=== PATIENT | male | born 1960 | race Two or more races ===

== ENCOUNTER → 2016-09-16 05:40 | Day surgery (SDC) | payer BC ==
--- NOTE | 2016-08-25 08:49 | HP ---
HISTORY AND PHYSICAL: DATE OF ADMISSION/SURGERY: 09/16/16 DATE OF OFFICE VISIT: 08/22/16 SURGEON: Rafia Castillo MD PROCEDURE: Right knee arthroscopy with partial medial meniscectomy and lateral cyst excision. CHIEF COMPLAINT: Right knee pain. HISTORY OF PRESENT ILLNESS: Mr. Easton is a 56-year-old gentleman with continued complaints of right knee pain. He has failed conservative management and has elected to proceed with surgery which is scheduled for 09/16/[address] Castillo. PAST MEDICAL HISTORY: High cholesterol. PAST SURGICAL HISTORY: Left knee arthroscopy, and right carpal tunnel release. CURRENT MEDICATIONS: Naproxen. ALLERGIES: To DEMEROL. FAMILY HISTORY: Prostate cancer and heart disease. SOCIAL HISTORY: This is a 56-year-old gentleman, lives with his . He works as a deputy chief of the police department. He does not smoke or use drugs. Occasional alcohol. REVIEW OF SYSTEMS: A complete 14-point review of systems was reviewed with the patient. All was negative or noncontributory. PHYSICAL EXAMINATION VITAL SIGNS: He stands 5 feet and 7 inches tall, weighs 225 pounds. His blood pressure 128/72, his heart rate 77. HEENT: Normocephalic, atraumatic. NECK: Supple. No palpable lymph nodes. Trachea is midline. PULMONARY: The lungs are clear to auscultation bilaterally. No wheezes, rhonchi, or rales. CARDIO: Regular rate and rhythm. Strong S1, S2. No murmurs, gallops, or rubs. No peripheral edema. ABDOMEN: Soft, nontender, nondistended. NEUROLOGICAL: He is alert and oriented x3. Cranial nerves II through XII are intact. MUSCULOSKELETAL: Right lower extremity: The skin is intact. He has some tenderness over the medial joint line with mild effusion. Full range of motion. Negative Bobbi's. Negative posterior drawer. He is neurovascularly intact distally with intact sensation. ASSESSMENT AND PLAN: Mr. Easton is a 56-year-old gentleman with complaints of right knee pain. He has failed conservative management and he has elected to proceed with right knee arthroscopy with partial medial meniscectomy and lateral cyst excision and surgery was scheduled for 09/16/[address] Castillo. Percocet as well as ibuprofen were sent to his pharmacy for postoperative pain control. He will follow with Dr. Castillo in 10 to 14 days after the surgery. RIDDHI BARTLETT [id number]/[facility] #: [id number] MTDD
[~2016-09-16 05:40] MED LIST: Buffered Lidocaine 1% SYR 3ML* 3 ML/SYR SYRINGE INTRADERM ONE; Bupivacaine 0.5% SDV PF* 30 ML VIAL ONE; Chloroprocaine 2%* 20 ML VIAL ONE; DiMENhydriNATE IV* 50 MG/ML VIAL IV PUSH PRN; EPINEPHrine AMP 1 MG/ML ONE; Ibuprofen TAB* 400 MG ONE; Ibuprofen TAB* 800 MG PO ONE; Midazolam* 1 MG/ML 2 ML VIAL (2 MG) ONE; Midazolam* 1 MG/ML 5 ML VIAL (5 MG) ONE; Ondansetron INJ* 2 MG/ML VIAL IV PRN; Sodium Citrate/Citric Acid* 15 ML UDC ONE; Sodium Citrate/Citric Acid* 15 ML UDC PO ONE; ceFAZolin 2 GM PREMIX (*) 2 GM/50 ML BAG IVPB ONE; fentaNYL* 50 MCG/ML 2 ML VIAL (100 MCG VIAL) IV PRN; fentaNYL* 50 MCG/ML 2 ML VIAL (100 MCG VIAL) ONE; methylPREDNISolone ACETATE 80* 80 MG/ML 1 ML VIAL ONE; oxyCODONE/Acetamin 5/325 MG* TAB ONE
[2016-09-16] MEDS: oxyCODONE/Acetamin 5/325 MG* TAB PO PRN ×2 (09:04→09:25)
[2016-09-16 10:02] VITALS: BP 152/68
--- NOTE | 2016-09-17 15:00 | OP ---
DATE OF OPERATION: 09/16/16 [facility] DATE OF : 60 ATTENDING SURGEON: Rafia Castillo MD HOME IMPROVEMENT ADVISOR: RIDDHI Hill ANESTHESIOLOGIST: Dr. Connelly. ANESTHESIA: Spinal. PRE-OP DIAGNOSES: Right knee medial meniscal tear, lateral knee cyst. POST-OP DIAGNOSES: Right knee medial meniscal tear, lateral cyst, anterior synovitis. OPERATIVE PROCEDURE: Right knee arthroscopy with partial medial meniscectomy, anterior synovectomy, and lateral cyst excision. COMPLICATIONS: None. TOURNIQUET TIME: 8 minutes. SPECIMEN: Small 1-cm diameter soft tissue cystic-like structure sent to pathology. EBL: Less than 25 cc. BRIEF HISTORY/INDICATION: Mr. Easton is a 56-year-old gentleman with several months of increasingly severe right knee pain. An MRI confirmed a re- tear of his medial meniscus. He also developed a small cyst around the prior lateral portal incision. He wished to have both of these excised due to continued pain. Conservative treatment with rest, physical therapy, antiinflammatories, and intra-articular steroid injections failed to control his pain. Informed consent was obtained from the patient. He understood the risks of the procedure included but were not limited to bleeding, infection, damage to nearby structures, continued pain, need for further surgery, recurrence of the cyst, stroke, heart attack, blood clot, and . He wishes to proceed. INTRAOPERATIVE FINDINGS: Intraoperatively, the patient was known to have a parrot- beak-type tear of the body of the medial meniscus, which was displaced into the joint. Grade 3 and 4 Outerbridge cartilage changes of the medial femoral condyle, grade 2 and 3 Outerbridge cartilage changes of the patellar cartilage. Large amount anterior and anteromedial synovitis. Also, a 1-cm diameter cystic-like soft tissue structure just superior to the prior lateral portal. DESCRIPTION OF PROCEDURE: Mr. Easton was identified in the preanesthesia unit. His right lower extremity was marked as the correct operative side. Informed consent was signed and placed in the chart. The patient was taken to the operating room and placed under spinal anesthesia. A tourniquet was placed on the right thigh. The right lower extremity was prepped and draped in the usual sterile fashion. Preop time-out was made to correctly identify the patient's side and site. Appropriate perioperative antibiotics were given within 1 hour of incision. A 0.5 cm anterolateral portal incision was made using the prior lateral portal incision site. A 15 blade was carried down through the capsule. Trocar was introduced. As soon as the light and water sources were turned on, there was immediate visualization of the suprapatellar pouch. A tour of the knee joint was performed. Suprapatellar pouch had no obvious abnormalities. Patellofemoral compartment had a large amount of the anteromedial synovitis and the patella had some cartilage fissures with grade 2 and 3 Outerbridge cartilage changes. No large areas of exposed subchondral bone. Medial gutter had a large amount of synovitis. Anterior joint had significant synovitis as well. The medial compartment showed a medial meniscal body tear. ACL appeared to be intact. Medial femoral condyle had exposed subchondral bone with grade 3 and 4 Outerbridge cartilage changes. The leg was placed in a [id number] position. Lateral compartment had no significant cartilage degeneration or obvious meniscal tear. Under direct visualization, a medial portal incision was made with a 15 blade. A probe was introduced and a second tour of the knee joint was performed. There were large amounts of small cartilage fragments in the joint fluid. These were suctioned out of the joint and irrigated with the shaver. Next, the probe showed displaceable [id number]-[id number] tear of the medial meniscal body in the white-red zone, this was removed using a straight biter and shaver. Radiofrequency ablation wand was used to smooth the edge of the meniscus. A probe showed no additional tearing or displaceable meniscal fragments. Next, the shaver and radiofrequency ablation wand were used to remove some anterior synovitis and anteromedial synovitis. The knee was copiously irrigated with sterile saline. All instruments were carefully removed. Tourniquet was turned up at this point for 8 minutes. The lateral portal incision was enlarged to approximately 3 cm. A small amount of soft tissue, which was palpable and seemed to be a cyst-like structure was carefully removed with tenotomies and sent to pathology. Interrupted 2-0 Vicryl was used to close this capsular region and the portal incision. 3-0 nylon was used to close the medial portal and the lateral incision. Intra- articular injection of 80 mg of Depo-Medrol and 6 cc of 0.25% Marcaine was placed in the knee joint. Sterile Xeroform, 4 x 4's, and Webril were used to cover the incisions. Casey wrap and cold pack were placed over this. The patient's anesthesia was reversed without difficulty. He was taken to the PACU in stable condition. Intended weightbearing will be weightbearing as tolerated. Intended DVT prophylaxis will be aspirin twice daily. [id number]/[facility] #: [id number] MTDD
== END | disposition home or self-care (01) ==
LOC: OR 05:40
PROVIDERS: ATTEND Orthopaedic Surgery Adult Reconstructive Orthopaedic Surgery
DX: M23.203 Derangement of unspecified medial meniscus due to old tear or injury, right knee (principal); M65.861 Other synovitis and tenosynovitis, right lower leg; E66.9 Obesity, unspecified
CPT/HCPCS: 88304; A9270-GY; J0171; J0690; J1040; J2250; J2400; J3010

== ENCOUNTER 2017-05-28 07:40 | Emergency (ER) | payer BC ==
[2017-05-28 07:58] VITALS: BP 137/74
--- NOTE | 2017-05-28 08:18 | UC ---
Back Pain HPI - HPI Summary HPI Summary: 56 yo male with right CVA pain with some radiation to right flank x 2-3 days constant currently 01/10 no UTI symptoms no f/c no n/v - History of Current Complaint Chief Complaint: UCGeneralIllness Stated Complaint: LOWER BACK PAIN Time Seen by Provider: 05/28/17 08:01 Hx Obtained From: Patient Onset/Duration: Sudden Onset - fairly acute onset Timing: Constant Severity Initially: Moderate Severity Currently: Moderate Pain Intensity: 6 Pain Scale Used: 0-10 Numeric Back Pain: Is Discrete @ - right CVA, Radiates To - right flank Character: Aching Aggravating Factor(s): Movement Alleviating Factor(s): OTC Meds Associated Signs And Symptoms: Positive: Negative, Flank Pain - Allergies/Home Medications Allergies/Adverse Reactions: Allergies Allergy/AdvReac Type Severity Reaction Status Date / Time Meperidine [From Demerol HCl] AdvReac Intermediate Dizziness Verified 05/28/17 07:46 PMH/Surg Hx/FS Hx/Imm Hx Previously Healthy: Yes - Surgical History Surgical History: Yes Surgery Procedure, Year, and Place: 2013 LEFT INGUINAL HERNIA REPAIR. 2014 LEFT KNEE ARTHROSCOPIC SURGERY FOR MENISCAL TEAR, [facility] [place]. 2015 RIGHT CARPAL TUNNEL RELEASE, [facility] [place]. 2016 RIGHT KNEE ARTHROSCOPIC SURGERY, PARTIAL MENISCECTOMY & MEDIAL CHONDROPLASTY, [facility] [place] - Family History Known Family History: Positive: Hypertension - Social History Alcohol Use: Rare Alcohol Amount: 1 BEER PER WEEK Substance Use Type: None Smoking Status (MU): Never Smoked Tobacco Have You Smoked in the Last Year: No Review of Systems Constitutional: Negative Skin: Negative Eyes: Negative ENT: Negative Respiratory: Negative Cardiovascular: Negative Gastrointestinal: Negative Genitourinary: Negative Motor: Negative Neurovascular: Negative Musculoskeletal: Myalgia Neurological: Negative Psychological: Negative Is Patient Immunocompromised?: No All Other Systems Reviewed And Are Negative: Yes Physical Exam Triage Information Reviewed: Yes Appearance: Well-Appearing, No Pain Distress, Well-Nourished Vital Signs: Initial Vital Signs Temp 97.7 F 05/28/17 07:47 Pulse 65 05/28/17 07:47 Resp 20 05/28/17 07:47 BP 137/74 05/28/17 07:47 Pulse Ox 97 05/28/17 07:47 Vital Signs Reviewed: Yes Eyes: Positive: Conjunctiva Clear ENT: Positive: Hearing grossly normal. Negative: Nasal congestion, Nasal drainage, Tonsillar exudate, Trismus, Muffled/hoarse voice Neck: Positive: Supple, Nontender, No Lymphadenopathy Respiratory: Positive: Lungs clear, Normal breath sounds, No respiratory distress Cardiovascular: Positive: RRR, No Murmur Abdomen Description: Positive: Nontender, No Organomegaly, CVA Tenderness (R) - mild Bowel Sounds: Positive: Present Musculoskeletal: Positive: ROM Intact, No Edema Neurological: Positive: Alert Psychological Exam: Normal Skin Exam: Normal Diagnostics - Laboratory Diagnostic Studies Completed/Ordered: Udip - negative - Radiology No standard instances Xray Interpretation: No Acute Changes - NO RIGHT HYDRONEPHROSIS OR NEPHROLITHIASIS Radiology Interpretation Completed By: Radiologist Back Pain Course/Dx - Differential Dx/Diagnosis Provider Diagnoses: back pain/suspect strain Discharge - Discharge Plan Condition: Stable Disposition: HOME Prescriptions: Ibuprofen TAB* [Motrin TAB*] 600 mg PO Q6H PRN #40 tab PRN Reason: Pain Patient Education Materials: Back Pain (ED) Referrals: Sameer Fenton MD [Primary Care Provider] - 5 Days Additional Instructions: I suggest you see your MD next week if not improved recheck sooner for new or worsening symptoms
[2017-05-28] MEDS ORDERED: Ibuprofen TAB* 600 MG PO ONE (08:23)
--- NOTE | 2017-05-28 09:06 | RAD ---
HISTORY: Right CP angle pain, tenderness COMPARISONS: None TECHNIQUE: Multiple transverse and longitudinal ultrasound images were obtained of the kidneys using grayscale and color Doppler imaging. FINDINGS: RIGHT KIDNEY: There is persistent lobulation. There is no hydronephrosis or nephrolithiasis. The right kidney measures 13.3 x 5.7 x 5.3 cm. LEFT KIDNEY: No images are submitted of the left kidney BLADDER: No images are submitted of the bladder. AORTA AND IVC: No images are submitted of the vasculature. RETROPERITONEUM: Unremarkable. OTHER: None. IMPRESSION: NO RIGHT HYDRONEPHROSIS OR NEPHROLITHIASIS
== END 2017-05-28 09:20 | disposition home or self-care (01) ==
LOC: UCEAST 07:40
DX: M54.5 Low back pain (principal); Z88.5 Allergy status to narcotic agent
CPT/HCPCS: 76775; 81003; 99212; A9270-GY; G0463